=== PATIENT | female | born 1940 | race Caucasian/White ===

== ENCOUNTER 2021-11-26 10:39 | Inpatient (IN) | payer MEDICARE ==
[~2021-11-26] VITALS: Ht 170.2 cm; Wt 69.4 kg
[2021-11-26 10:39] VITALS: BP 99/51
[~2021-11-26 10:39] MED LIST: ASPIRIN ADULT L81 M2 PO; COREG6.25 MG PO; LIPITOR40 MG PO; MUCUS RELIEF600 MG PO; PEPCID AC20 MG PO; PREDNISONE10 MG PO; ZITHROMAX250 MG PO; ZOLOFT25 MG PO
[2021-11-26 11:37] LABS: BASO # 0.1 10*3/uL (0.0-0.1); BASO % 0.8 % (0.0-1.0); EOS # 0.6 10*3/uL (0.0-0.4); EOS % 7.5 % (1.0-4.0); HEMATOCRIT 35.5 % (37.0-47.0); LYMPH # 2.8 10*3/uL (1.3-4.4); LYMPH % 35.2 % (27.0-41.0); MEAN CORPUSCULAR HGB CONC 30.4 g/dl (33.0-37.0); MEAN PLATELET VOLUME 9.5 fl (9.6-12.3); MONO # 0.9 10*3/uL (0.1-1.0); MONO % 11.3 % (3.0-9.0); NEUT # 3.6 10*3/uL (2.3-7.9); NEUT % 45.1 % (47.0-73.0); PLATELET COUNT AUTOMATED 214 10*3/uL (130-400); RED BLOOD COUNT 3.38 10*6/uL (4.10-5.10); RED CELL DISTRI WIDTH 13.9 % (0-14.5); WHITE BLOOD COUNT 7.9 10*3/uL (4.8-10.8)
[2021-11-26 11:54] LABS: ALKALINE PHOSPHATASE 84 U/L (45-117); BUN 24 mg/dl (7-24); CHLORIDE 94 mmol/L (98-107); CREATININE 0.86 mg/dL (0.55-1.02); POTASSIUM 4.7 mmol/L (3.5-5.1); SGOT/AST 14 IU/L (3-35); SGPT/ALT 13 U/L (12-78); SODIUM 139 mmol/L (136-145); TOTAL PROTEIN 6.1 gm/dL (6.4-8.2)
[2021-11-26 12:41] VITALS: BP 92/60
[2021-11-26 14:52] VITALS: BP 108/49
[2021-11-26 16:33] LABS: ABG BASE EXCESS 20.3 mmol/L (-2.0-2.0); ARTERIAL BLOOD GAS PH 7.362 (7.35-7.45); ARTERIAL BLOOD GAS PO2 65.2 (80-90)
[2021-11-26 17:00] VITALS: BP 111/53; BP 116/60
[2021-11-26 20:00] VITALS: BP 109/50
[2021-11-27] VITALS: BP 109/62
[2021-11-27 05:49] LABS: BUN 22 mg/dl (7-24); CHLORIDE 94 mmol/L (98-107); CREATININE 0.69 mg/dL (0.55-1.02); POTASSIUM 4.7 mmol/L (3.5-5.1); SODIUM 137 mmol/L (136-145)
[2021-11-27 06:25] LABS: BASO # 0.1 10*3/uL (0.0-0.1); BASO % 0.7 % (0.0-1.0); EOS # 0.6 10*3/uL (0.0-0.4); EOS % 7.8 % (1.0-4.0); LYMPH # 1.9 10*3/uL (1.3-4.4); LYMPH % 26.2 % (27.0-41.0); MEAN CELL VOLUME 105.8 fl (81.0-99.0); MEAN CORPUSCULAR HGB CONC 30.3 g/dl (33.0-37.0); MEAN PLATELET VOLUME 10.2 fl (9.6-12.3); MONO # 0.9 10*3/uL (0.1-1.0); MONO % 11.9 % (3.0-9.0); NEUT # 3.8 10*3/uL (2.3-7.9); NEUT % 53.1 % (47.0-73.0); PLATELET COUNT AUTOMATED 220 10*3/uL (130-400); RED BLOOD COUNT 3.59 10*6/uL (4.10-5.10); RED CELL DISTRI WIDTH 14.1 % (0-14.5); WHITE BLOOD COUNT 7.2 10*3/uL (4.8-10.8)
[2021-11-27 08:00] VITALS: BP 104/60
[2021-11-27 12:00] VITALS: BP 94/53
[2021-11-27 16:00] VITALS: BP 104/50
[2021-11-28] VITALS: BP 114/61
[2021-11-28 06:25] LABS: BASO % 0.1 % (0.0-1.0); HEMATOCRIT 34.2 % (37.0-47.0); LYMPH # 1.8 10*3/uL (1.3-4.4); LYMPH % 20.2 % (27.0-41.0); MEAN CORPUSCULAR HGB 31.5 pg (27.0-31.0); MEAN PLATELET VOLUME 10.4 fl (9.6-12.3); MONO # 0.1 10*3/uL (0.1-1.0); MONO % 1.5 % (3.0-9.0); NEUT # 6.9 10*3/uL (2.3-7.9); NEUT % 77.7 % (47.0-73.0); PLATELET COUNT AUTOMATED 224 10*3/uL (130-400); RED BLOOD COUNT 3.36 10*6/uL (4.10-5.10); RED CELL DISTRI WIDTH 13.8 % (0-14.5); WHITE BLOOD COUNT 8.8 10*3/uL (4.8-10.8)
[2021-11-28 06:32] LABS: CHLORIDE 90 mmol/L (98-107); MEAN CELL VOLUME 101.8 fl (81.0-99.0); POTASSIUM 4.6 mmol/L (3.5-5.1); SODIUM 134 mmol/L (136-145)
[2021-11-28 06:41] LABS: BUN 31 mg/dl (7-24); CREATININE 0.94 mg/dL (0.55-1.02)
[2021-11-28 08:00] VITALS: BP 108/50
[2021-11-28 12:00] VITALS: BP 126/64
[2021-11-28 16:00] VITALS: BP 111/77
[2021-11-28 20:04] VITALS: BP 111/79
[2021-11-28 21:48] LABS: ABG BASE EXCESS 13.9 mmol/L (-2.0-2.0); ARTERIAL BLOOD GAS PH 7.433 (7.35-7.45); ARTERIAL BLOOD GAS PO2 70.8 (80-90)
[2021-11-28 22:46] LABS: BILIRUBIN Negative (Negative); BLOOD Negative (Negative); CLARITY Clear (Clear); COLOR Yellow (Yellow); GLUCOSE Negative (Negative); KETONE Negative (Negative); LEUKO ESTERASE 1+ (Negative); NITRITE Negative (Negative); UROBILINOGEN 0.2 E.U./dl (0.0-1.0)
[2021-11-28 23:25] LABS: EPITHELIAL CELLS 0-2
[2021-11-28 23:26] LABS: BACTERIA TRACE
[2021-11-29] VITALS: BP 110/55
[2021-11-29 06:29] LABS: BASO % 0.1 % (0.0-1.0); HEMATOCRIT 35.7 % (37.0-47.0); LYMPH # 1.1 10*3/uL (1.3-4.4); LYMPH % 11.6 % (27.0-41.0); MEAN CELL VOLUME 103.2 fl (81.0-99.0); MEAN CORPUSCULAR HGB 31.8 pg (27.0-31.0); MEAN CORPUSCULAR HGB CONC 30.8 g/dl (33.0-37.0); MEAN PLATELET VOLUME 10.2 fl (9.6-12.3); MONO # 0.2 10*3/uL (0.1-1.0); MONO % 2.4 % (3.0-9.0); NEUT # 8.2 10*3/uL (2.3-7.9); NEUT % 85.6 % (47.0-73.0); PLATELET COUNT AUTOMATED 238 10*3/uL (130-400); RED BLOOD COUNT 3.46 10*6/uL (4.10-5.10); RED CELL DISTRI WIDTH 14.1 % (0-14.5); WHITE BLOOD COUNT 9.6 10*3/uL (4.8-10.8)
[2021-11-29 06:43] LABS: BUN 35 mg/dl (7-24); CHLORIDE 94 mmol/L (98-107); CREATININE 0.97 mg/dL (0.55-1.02); POTASSIUM 4.3 mmol/L (3.5-5.1); SODIUM 137 mmol/L (136-145)
[2021-11-29 09:45] VITALS: BP 112/57
[2021-11-29 12:00] VITALS: BP 120/61
[2021-11-29 16:00] VITALS: BP 98/61
[2021-11-29 20:00] VITALS: BP 110/59
[2021-11-30] VITALS: BP 109/62
[2021-11-30 06:12] LABS: ALKALINE PHOSPHATASE 63 U/L (45-117); BUN 36 mg/dl (7-24); CHLORIDE 95 mmol/L (98-107); CREATININE 0.88 mg/dL (0.55-1.02); POTASSIUM 3.9 mmol/L (3.5-5.1); SGOT/AST 13 IU/L (3-35); SGPT/ALT 14 U/L (12-78); SODIUM 138 mmol/L (136-145)
[2021-11-30 06:38] LABS: HEMATOCRIT 32.3 % (37.0-47.0); LYMPH # 1.2 10*3/uL (1.3-4.4); LYMPH % 15.8 % (27.0-41.0); MEAN CELL VOLUME 102.2 fl (81.0-99.0); MEAN CORPUSCULAR HGB CONC 31.3 g/dl (33.0-37.0); MEAN PLATELET VOLUME 10.6 fl (9.6-12.3); MONO # 0.3 10*3/uL (0.1-1.0); NEUT # 5.9 10*3/uL (2.3-7.9); NEUT % 79.8 % (47.0-73.0); PLATELET COUNT AUTOMATED 232 10*3/uL (130-400); RED BLOOD COUNT 3.16 10*6/uL (4.10-5.10); RED CELL DISTRI WIDTH 13.7 % (0-14.5); WHITE BLOOD COUNT 7.3 10*3/uL (4.8-10.8)
[2021-11-30 08:00] VITALS: BP 132/86
[2021-11-30] MEDS ORDERED: ZITHROMAX250 MG PO (11:33)
[2021-11-30] MEDS ORDERED: PREDNISONE10 MG PO (11:33)
[2021-11-30] MEDS ORDERED: VITAMIN D350 MC2 PO (11:33)
== END 2021-11-30 14:08 | DRG 189 ==
LOC: ED 10:39 → 4E 14:06 → EDHOLD 14:06 → 4E 16:44
PROVIDERS: Hospitalist; Internal Medicine; Physician Assistant; Registered Nurse; Student in an Organized Health Care Education/Training Program; ADMIT Family Medicine; ATTEND Family Medicine
PROC: 5A09357 Assistance with Respiratory Ventilation, Less than 24 Consecutive Hours, Continuous Positive Airway Pressure (ICD-10-PCS; principal; 2021-11-26)
PROC: 5A0945A Assistance with Respiratory Ventilation, 24-96 Consecutive Hours, High Flow/Velocity Cannula (ICD-10-PCS; 2021-11-27)
PROC: 0HBRXZZ Excision of Toe Nail, External Approach (ICD-10-PCS; 2021-11-27)
PROC: 0HBRXZZ Excision of Toe Nail, External Approach (ICD-10-PCS; 2021-11-27)
PROC: 0HBRXZZ Excision of Toe Nail, External Approach (ICD-10-PCS; 2021-11-27)
PROC: 0HBRXZZ Excision of Toe Nail, External Approach (ICD-10-PCS; 2021-11-27)
PROC: 0HBRXZZ Excision of Toe Nail, External Approach (ICD-10-PCS; 2021-11-27)
PROC: 0HBRXZZ Excision of Toe Nail, External Approach (ICD-10-PCS; 2021-11-27)
PROC: 0HBRXZZ Excision of Toe Nail, External Approach (ICD-10-PCS; 2021-11-27)
PROC: 0HBRXZZ Excision of Toe Nail, External Approach (ICD-10-PCS; 2021-11-27)
PROC: 0HBRXZZ Excision of Toe Nail, External Approach (ICD-10-PCS; 2021-11-27)
PROC: 0HBRXZZ Excision of Toe Nail, External Approach (ICD-10-PCS; 2021-11-27)
PROC: 5A09357 Assistance with Respiratory Ventilation, Less than 24 Consecutive Hours, Continuous Positive Airway Pressure (ICD-10-PCS; 2021-11-29)
DX: J96.21 Acute and chronic respiratory failure with hypoxia (principal); E43 Unspecified severe protein-calorie malnutrition; J44.1 Chronic obstructive pulmonary disease with (acute) exacerbation; J96.22 Acute and chronic respiratory failure with hypercapnia; Z20.822 Contact with and (suspected) exposure to COVID-19; K21.9 Gastro-esophageal reflux disease without esophagitis; L85.3 Xerosis cutis; B35.1 Tinea unguium; E78.5 Hyperlipidemia, unspecified; R73.9 Hyperglycemia, unspecified; I73.9 Peripheral vascular disease, unspecified; I25.10 Atherosclerotic heart disease of native coronary artery without angina pectoris; D53.9 Nutritional anemia, unspecified; R44.1 Visual hallucinations; Z88.6 Allergy status to analgesic agent; Z79.82 Long term (current) use of aspirin; Z99.81 Dependence on supplemental oxygen; Z79.2 Long term (current) use of antibiotics; Z79.899 Other long term (current) drug therapy; Z68.23 Body mass index [BMI] 23.0-23.9, adult

== ENCOUNTER 2022-04-09 11:37 | Inpatient (IN) | payer MEDICARE ==
[~2022-04-09] VITALS: Ht 152 cm; Wt 79.0 kg
[~2022-04-09 11:37] MED LIST changes: +BISACODYL10 MG R; +CIPRO500 MG PO; +FUROSEMIDE40 MG PO; +Ipratropium Brom3 ML INH; +LOSARTAN POTASS25 M1 PO; +METOPROLOL SUCC50 M1 PO; +MILK OF MA400 MG/51 PO; +VITAMIN D350 MC2 PO
[2022-04-09 11:40] VITALS: BP 106/53
[2022-04-09 12:07] LABS: BASO # 0.1 10*3/uL (0.0-0.1); BASO % 0.9 % (0.0-1.0); EOS # 0.7 10*3/uL (0.0-0.4); EOS % 7.9 % (1.0-4.0); HEMATOCRIT 36.4 % (37.0-47.0); LYMPH # 2.6 10*3/uL (1.3-4.4); LYMPH % 31.7 % (27.0-41.0); MEAN CELL VOLUME 103.7 fl (81.0-99.0); MEAN CORPUSCULAR HGB 31.9 pg (27.0-31.0); MEAN CORPUSCULAR HGB CONC 30.8 g/dl (33.0-37.0); MEAN PLATELET VOLUME 9.9 fl (9.6-12.3); MONO # 0.6 10*3/uL (0.1-1.0); MONO % 7.8 % (3.0-9.0); NEUT # 4.2 10*3/uL (2.3-7.9); NEUT % 51.5 % (47.0-73.0); PLATELET COUNT AUTOMATED 239 10*3/uL (130-400); RED BLOOD COUNT 3.51 10*6/uL (4.10-5.10); RED CELL DISTRI WIDTH 14.2 % (0-14.5); WHITE BLOOD COUNT 8.2 10*3/uL (4.8-10.8)
[2022-04-09 12:24] LABS: CREATININE 1.41 mg/dL (0.55-1.02); POTASSIUM 4.1 mmol/L (3.5-5.1); TOTAL PROTEIN 6.6 gm/dL (6.4-8.2)
[2022-04-09 12:25] LABS: ACT PARTIAL THROMBO TIME 24.4 SECONDS (20.0-32.1)
[2022-04-09 12:37] LABS: ABG BASE EXCESS 12.5 mmol/L (-2.0-2.0); ARTERIAL BLOOD GAS PH 7.349 (7.35-7.45); ARTERIAL BLOOD GAS PO2 66.4 (80-90)
[2022-04-09 14:21] VITALS: BP 96/61
[2022-04-09 15:30] VITALS: BP 95/55
[2022-04-09 20:00] VITALS: BP 103/57
[2022-04-10] VITALS: BP 110/50
[2022-04-10 06:11] LABS: CREATININE 1.5 mg/dL (0.55-1.02); POTASSIUM 4.3 mmol/L (3.5-5.1)
[2022-04-10 06:23] LABS: BASO % 0.3 % (0.0-1.0); LYMPH # 1.3 10*3/uL (1.3-4.4); LYMPH % 20.7 % (27.0-41.0); MEAN CELL VOLUME 101.1 fl (81.0-99.0); MEAN CORPUSCULAR HGB CONC 31.7 g/dl (33.0-37.0); MEAN PLATELET VOLUME 10.6 fl (9.6-12.3); MONO # 0.1 10*3/uL (0.1-1.0); MONO % 1.9 % (3.0-9.0); NEUT # 4.8 10*3/uL (2.3-7.9); NEUT % 76.8 % (47.0-73.0); PLATELET COUNT AUTOMATED 260 10*3/uL (130-400); RED BLOOD COUNT 3.56 10*6/uL (4.10-5.10); RED CELL DISTRI WIDTH 13.9 % (0-14.5); WHITE BLOOD COUNT 6.2 10*3/uL (4.8-10.8)
[2022-04-10 08:00] VITALS: BP 99/50
[2022-04-10 12:00] VITALS: BP 104/54
[2022-04-10 16:00] VITALS: BP 99/50
[2022-04-10 20:00] VITALS: BP 113/63
[2022-04-11] VITALS: BP 86/51
[2022-04-11 01:50] VITALS: BP 98/54
[2022-04-11 06:09] LABS: BASO % 0.2 % (0.0-1.0); HEMATOCRIT 33.2 % (37.0-47.0); LYMPH # 1.6 10*3/uL (1.3-4.4); LYMPH % 18.1 % (27.0-41.0); MEAN CELL VOLUME 101.8 fl (81.0-99.0); MEAN CORPUSCULAR HGB 31.6 pg (27.0-31.0); MEAN PLATELET VOLUME 10.2 fl (9.6-12.3); MONO # 0.6 10*3/uL (0.1-1.0); MONO % 6.7 % (3.0-9.0); NEUT # 6.7 10*3/uL (2.3-7.9); NEUT % 74.6 % (47.0-73.0); PLATELET COUNT AUTOMATED 254 10*3/uL (130-400); RED BLOOD COUNT 3.26 10*6/uL (4.10-5.10); RED CELL DISTRI WIDTH 14.1 % (0-14.5)
[2022-04-11 06:32] LABS: CREATININE 1.49 mg/dL (0.55-1.02); POTASSIUM 3.9 mmol/L (3.5-5.1)
[2022-04-11 08:00] VITALS: BP 104/57
[2022-04-11] MEDS ORDERED: MORGIDOX100 MG PO (10:04)
[2022-04-11] MEDS ORDERED: PREDNISONE10 MG PO (10:04)
[2022-04-11] MEDS ORDERED: MUCINEX1200 M1 PO (10:05)
[2022-04-11 12:00] VITALS: BP 109/61
== END 2022-04-11 13:03 | DRG 871 ==
LOC: ED 11:37 → 5E 12:54 → 4E 12:54 → EDHOLD 12:54 → 4E 14:36 → 5E 04-10 14:35
PROVIDERS: Emergency Medicine; Internal Medicine; ADMIT Internal Medicine; ATTEND Internal Medicine
PROC: 5A09357 Assistance with Respiratory Ventilation, Less than 24 Consecutive Hours, Continuous Positive Airway Pressure (ICD-10-PCS; principal; 2022-04-09)
PROC: 5A0935A Assistance with Respiratory Ventilation, Less than 24 Consecutive Hours, High Flow/Velocity Cannula (ICD-10-PCS; 2022-04-10)
PROC: 5A09357 Assistance with Respiratory Ventilation, Less than 24 Consecutive Hours, Continuous Positive Airway Pressure (ICD-10-PCS; 2022-04-11)
PROC: 5A0935A Assistance with Respiratory Ventilation, Less than 24 Consecutive Hours, High Flow/Velocity Cannula (ICD-10-PCS; 2022-04-11)
DX: A41.9 Sepsis, unspecified organism (principal); G93.41 Metabolic encephalopathy; J18.9 Pneumonia, unspecified organism; J96.21 Acute and chronic respiratory failure with hypoxia; J96.22 Acute and chronic respiratory failure with hypercapnia; E44.0 Moderate protein-calorie malnutrition; I50.20 Unspecified systolic (congestive) heart failure; J44.1 Chronic obstructive pulmonary disease with (acute) exacerbation; E87.2 Acidosis; J44.0 Chronic obstructive pulmonary disease with (acute) lower respiratory infection; R65.20 Severe sepsis without septic shock; K21.9 Gastro-esophageal reflux disease without esophagitis; F32.9 Major depressive disorder, single episode, unspecified; I25.10 Atherosclerotic heart disease of native coronary artery without angina pectoris; I73.9 Peripheral vascular disease, unspecified; D53.9 Nutritional anemia, unspecified; R73.9 Hyperglycemia, unspecified; E78.2 Mixed hyperlipidemia; Z88.8 Allergy status to other drugs, medicaments and biological substances; Z86.16 Personal history of COVID-19; Z95.5 Presence of coronary angioplasty implant and graft; Z99.81 Dependence on supplemental oxygen; Z68.34 Body mass index [BMI] 34.0-34.9, adult

== ENCOUNTER 2022-05-23 11:51 | Emergency (ER) | payer MEDICARE ==
[~2022-05-23] VITALS: Wt 77.6 kg
[~2022-05-23 11:51] MED LIST changes: +MORGIDOX100 MG PO; +MUCINEX1200 M1 PO
[2022-05-23 12:23] LABS: MEAN CORPUSCULAR HGB CONC 31.1 g/dl (33.0-37.0)
[2022-05-23 12:37] LABS: CREATININE 1.59 mg/dL (0.55-1.02); POTASSIUM 4.5 mmol/L (3.5-5.1); TOTAL PROTEIN 6.1 gm/dL (6.4-8.2)
[2022-05-23 13:17] LABS: BASO # 0.1 10*3/uL (0.0-0.1); BASO % 0.7 % (0.0-1.0); EOS # 0.3 10*3/uL (0.0-0.4); EOS % 3.2 % (1.0-4.0); LYMPH # 2.3 10*3/uL (1.3-4.4); LYMPH % 24.7 % (27.0-41.0); MEAN CORPUSCULAR HGB 31.1 pg (27.0-31.0); MEAN PLATELET VOLUME 9.1 fl (9.6-12.3); MONO # 1.2 10*3/uL (0.1-1.0); MONO % 12.3 % (3.0-9.0); NEUT # 5.4 10*3/uL (2.3-7.9); NEUT % 57.4 % (47.0-73.0); PLATELET COUNT AUTOMATED 262 10*3/uL (130-400); RED CELL DISTRI WIDTH 14.3 % (0-14.5); WHITE BLOOD COUNT 9.5 10*3/uL (4.8-10.8)
[2022-05-23] MEDS ORDERED: AMOXICILLIN500 M3 PO ×2 (13:27)
[2022-05-25] MEDS ORDERED: AMOXICILLIN500 M2 PO (23:50)
[2022-05-25] MEDS ORDERED: LEVOFLOXACIN500 MG PO (23:53)
[2022-05-25] MEDS ORDERED: MIRALAX17 GM PO (23:56)
[2022-05-25] MEDS ORDERED: TYLENOL325 M1 PO (23:57)
[2022-05-28] MEDS ORDERED: METOPROLOL SUCC25 M2 PO (12:48)
== END 2022-05-23 13:35 ==
LOC: ED 11:51
PROVIDERS: Student in an Organized Health Care Education/Training Program
DX: G93.40 Encephalopathy, unspecified (principal); N39.0 Urinary tract infection, site not specified; Z88.8 Allergy status to other drugs, medicaments and biological substances; Z79.899 Other long term (current) drug therapy; Z79.82 Long term (current) use of aspirin; Z87.891 Personal history of nicotine dependence